=== PATIENT | male | born 1980 | race African-American/Black ===

== ENCOUNTER 2016-07-20 10:02 | Emergency (ER) | payer OTHER ==
[~2016-07-20] VITALS: Ht 182.9 cm; Wt 91.0 kg
[2016-07-20] MEDS ORDERED: BACTRIM,SEPT1 TABLET PO (10:22)
[2016-07-20] MEDS ORDERED: MOTRIN800 MG PO (10:22)
[2016-07-20 13:38] LABS: EOSINOPHIL (%) 2.7 % (0-5); EOSINOPHIL COUNT 0.2 K/uL (0-0.3); HEMATOCRIT 42.9 % (38.0-50.0); LYMPHOCYTE COUNT 1.6 K/uL (1.0-2.8); MCH 29.8 PG (29.0-34.0); MCHC 31.7 G/DL (30.0-36.0); MCV 94.1 FL (86-99); MEAN PLAT.VOLUME 12.1 uM^3 (9.0-12.4); MONOCYTE COUNT 0.6 K/uL (0-0.8); NEUTROPHIL (%) 64.5 % (45-76); NEUTROPHIL COUNT 4.5 K/uL (1.8-6.4); PLATELET COUNT 174 K/uL (156-360); RBC DIS.WIDTH-CV 12.4 % (11.8-14.6); RBC DIS.WIDTH-SD 41.6 % (39-53); RED BLOOD COUNT 4.56 M/uL (4.00-5.50); WHITE BLOOD COUNT 6.9 K/uL (4.1-10.2)
[2016-07-20 13:49] LABS: CHLORIDE 107 mEq/L (99-109); POTASSIUM 4.4 mEq/L (3.7-5.4); SODIUM 141 mEq/L (136-147)
[2016-07-20 13:50] LABS: GLUCOSE 88 mg/dL (70-99)
[2016-07-20 13:52] LABS: ANION GAP 9 MEQ/L (2-14)
[2016-07-20 13:54] LABS: GFR ESTIMATE (CALCULATED) > 59 mL/min/
[2016-07-20 13:55] LABS: UREA NITROGEN (BUN) 12 mg/dL (9-23)
[2016-07-20 14:22] VITALS: BP 135/71
== END 2016-07-20 14:23 | disposition short-term general hospital (02) ==
LOC: EME → EDBD 10:02 → EME 10:02
PROVIDERS: Emergency Medicine
DX: M86.8X4 Other osteomyelitis, hand (principal); Z87.891 Personal history of nicotine dependence
CPT/HCPCS: 73130; 73220; 80048; 85025; 87040; 99281; 99285; J1956